=== PATIENT | female | born 1970 | race Caucasian/White ===

== ENCOUNTER 2016-11-15 17:52 | Emergency (ER) | payer BC, OTHER ==
[~2016-11-15] VITALS: Ht 160 cm; Wt 97.0 kg
[2016-11-15 18:04] VITALS: TEMP 37.1; Ht 160 cm; Wt 97.0 kg
[2016-11-15] MEDS ORDERED: SODIUM CHLORIDE 0.9% 1000ML 1,000 ML IV STA (18:50)
--- NOTE | 2016-11-15 18:55 | EMERGENCY ROOM VISIT NOTE ---
History First contact with patient: 18:26 Chief Complaint: OTHER COMPLAINT Stated Complaint: HEADACHE,BLURRED VISION,SPASMS IN HEAD History of Present Illness The patient is a 46 year old female who presents to the Emergency Room with myriad complaints. The patient essentially has a positive review of systems. The patient states that she has had intermittent headaches and blurred vision. She states that she noticed a lump on the top of her head at least 2 months ago. She states that she has had pain in the top of her head that radiates to her ears and her jaws intermittently. She states she saw a dentist did not think it was her teeth. The patient saw a neurologist back in June and had a normal MRI of the brain. She has also followed with her family doctor and had a CBC had her thyroid checked. The patient reports headache. She reports numbness and tingling diffusely. She reports pain in her chest, trouble breathing and indigestion. She reports nausea. She reports pain in her entire spine from her neck to her low back. She reports constipation, blood in her stool. She reports diffuse abdominal discomfort. She reports vaginal discharge. She reports urinary symptoms. The patient states she thought she had fibromyalgia and took Cymbalta but it did not help. Review of Systems A 10 system review of systems was completed with positives and pertinent negatives listed in the HPI. Past Medical/Surgical History Medical Problems: (1) Hypothyroid Social History Smoking Status: Never Smoker Marital Status: Housing Status: lives with family Current/Historical Medications Scheduled Control Pills ( Control Pills), 1 TAB PO DAILY Levothyroxine Sodium (Synthroid), 88 MCG PO QAM Allergies Coded Allergies: No Known Allergies (Unverified , 11/15/16) Physical Exam Vital Signs Date Time Temp Pulse Resp B/P Pulse Ox O2 Delivery O2 Flow Rate FiO2 11/15/16 20:37 78 18 134/89 98 Room Air 11/15/16 19:04 88 11/15/16 18:04 37.1 93 18 166/86 100 Room Air Physical Exam VITALS: Vitals are noted on the nurse's note and reviewed by myself. Vital signs stable. GENERAL: This is a 46-year-old female, in no acute distress, nondiaphoretic, well-developed well-nourished. SKIN: The skin was without rashes, erythema, edema, or bruising. There is a tiny, possible prominent follicle noted to the top of the head in the area that the patient reports a lump. There is no fluctuance, erythema, drainage. There is no tenting of the skin. Capillary reflex less than 2 seconds. HEAD: Normocephalic atraumatic. EARS: External auditory canals clear, tympanic membranes pearly arenas without erythema or effusion bilaterally. EYES: Pupils equal round and reactive to light and accommodation. Conjunctivae without injection, sclerae without icterus. Extraocular movements intact. NOSE: Patent, turbinates without inflammation or discharge. No sinus tenderness. MOUTH: Mucous membranes moist. Tonsils are not enlarged. Pharynx without erythema or exudate. Uvula midline. Airway patent. Tongue does not deviate. NECK: Supple without nuchal rigidity. No lymphadenopathy. No thyromegaly. Cervical spine is nontender. No JVD. HEART: Regular rate and rhythm without murmurs gallops or rubs. LUNGS: Clear to auscultation bilaterally without wheezes, rales or rhonchi. No retractions or accessory muscle use. ABDOMEN: Positive bowel sounds x 4. Soft, diffuse abdominal tenderness, without masses or organomegaly. Gunn sign negative. RECTAL: There is a nonbleeding, nonthrombosed, nontender external hemorrhoids present. Stool is brown and guaiac negative. MUSCULOSKELETAL: No muscle atrophy, erythema, or edema noted. Normal gait. Strength 5/5 throughout. NEURO: Patient was alert and oriented to person place and time. No focal neurological deficits. Medical Decision & Procedures ER Provider Diagnostic Interpretation: CHEST CTA for PULMONARY ARTERIES CT DOSE: 571.27 mGy.cm HISTORY: Chest pain dyspnea TECHNIQUE: Multiaxial CT images of the chest were performed following the intravenous administration of contrast to evaluate the pulmonary arteries. Maximal intensity projection images were also obtained. COMPARISON STUDY: None. FINDINGS: There is a normal caliber thoracic aorta with no evidence for dissection. There is no evidence for pulmonary embolus. No pleural effusions. No pneumothorax. The liver and spleen are unremarkable. No mediastinal or hilar lymphadenopathy. The central airways are patent. The lungs are clear. IMPRESSION: No evidence for pulmonary embolus. CHEST ONE VIEW PORTABLE CLINICAL HISTORY: chest pain dyspnea COMPARISON STUDY: No previous studies for comparison. FINDINGS: The bones soft tissues and hemidiaphragms are normal. The cardiomediastinal silhouette is normal. The lungs are clear. The pulmonary vasculature is normal. IMPRESSION: Negative chest. [~ rep ct add3]] HEAD CT NONCONTRAST CT DOSE: 537.48 mGy.cm HISTORY: headache TECHNIQUE: Multiaxial CT images of the head were performed without the use of intravenous contrast. Comparison: None. Findings: The paranasal sinuses and mastoid air cells are clear. The calvarium and skull base are intact. The ventricles and sulci are within normal limits. There is no mass, hematoma, midline shift, or acute infarct. Impression: No acute intracranial abnormality. Laboratory Results 11/15/16 19:01 Red Blood Count 4.70, Mean Corpuscular Volume 87.2, Mean Corpuscular Hemoglobin 29.4, Mean Corpuscular Hemoglobin Concent 33.7, Mean Platelet Volume 8.9, Neutrophils (%) (Auto) 50.1, Lymphocytes (%) (Auto) 38.3, Monocytes (%) (Auto) 10.6, Eosinophils (%) (Auto) 0.5, Basophils (%) (Auto) 0.3, Neutrophils # (Auto ) 5.20, Lymphocytes # (Auto) 3.98, Monocytes # (Auto) 1.10, Eosinophils # (Auto ) 0.05, Basophils # (Auto) 0.03 11/15/16 19:01 Test 11/15/16 19:00 11/15/16 19:01 Urine Color YELLOW Urine Appearance CLEAR (CLEAR) Urine pH 8.5 (4.5-7.5) Urine Specific [place] 1.009 (1.000-1.030) Urine Protein NEG (NEG) Urine Glucose (UA) NEG (NEG) Urine Ketones NEG (NEG) Urine Occult Blood 1+ (NEG) Urine Nitrite NEG (NEG) Urine Bilirubin NEG (NEG) Urine Urobilinogen NEG (NEG) Urine Leukocyte Esterase NEG (NEG) Urine WBC (Auto) 1-5 /hpf (0-5) Urine RBC (Auto) 5-10 /hpf (0-4) Urine Hyaline Casts (Auto) 1-5 /lpf (0-5) Urine Epithelial Cells (Auto) >30 /lpf (0-5) Urine Bacteria (Auto) 1+ (NEG) Urine Test NEG (NEG) White Blood Count 10.38 K/uL (4.8-10.8) Red Blood Count 4.70 M/uL (4.2-5.4) Hemoglobin 13.8 g/dL (12.0-16.0) Hematocrit 41.0 % (37-47) Mean Corpuscular Volume 87.2 fL (80-100) Mean Corpuscular Hemoglobin 29.4 pg (25-34) Mean Corpuscular Hemoglobin Concent 33.7 g/dl (32-36) Platelet Count 344 K/uL (130-400) Mean Platelet Volume 8.9 fL (7.4-10.4) Neutrophils (%) (Auto) 50.1 % Lymphocytes (%) (Auto) 38.3 % Monocytes (%) (Auto) 10.6 % Eosinophils (%) (Auto) 0.5 % Basophils (%) (Auto) 0.3 % Neutrophils # (Auto) 5.20 K/uL (1.4-6.5) Lymphocytes # (Auto) 3.98 K/uL (1.2-3.4) Monocytes # (Auto) 1.10 K/uL (0.11-0.59) Eosinophils # (Auto) 0.05 K/uL (0-0.5) Basophils # (Auto) 0.03 K/uL (0-0.2) RDW Standard Deviation 39.3 fL (36.4-46.3) RDW Coefficient of Variation 12.2 % (11.5-14.5) Immature Granulocyte % (Auto) 0.2 % Immature Granulocyte # (Auto) 0.02 K/uL (0.00-0.02) Prothrombin Time 10.6 SECONDS (9.0-12.0) Prothromb Time International Ratio 1.0 (0.9-1.1) Activated Partial Thromboplast Time 25.0 SECONDS (21.0-31.0) Partial Thromboplastin Ratio 1.0 D-Dimer 520 ug/L FEU (0-500) Anion Gap 7.0 mmol/L (3-11) Est Creatinine Clear Calc Drug Dose 113.4 ml/min Estimated GFR () 120.7 Estimated GFR (Non- 104.2 BUN/Creatinine Ratio 13.9 (10-20) Calcium Level 9.0 mg/dl (8.5-10.1) Total Bilirubin 0.4 mg/dl (0.2-1) Aspartate Amino Transf (AST/SGOT) 19 U/L (15-37) Alanine Aminotransferase (ALT/SGPT) 32 U/L (12-78) Alkaline Phosphatase 89 U/L (45-117) Total Creatine Kinase 118 U/L (26-192) Creatine Kinase MB < 0.5 ng/ml (0.5-3.6) Creatine Kinase MB Ratio (0-3.0) Troponin I < 0.015 ng/ml (0-0.045) Total Protein 7.7 gm/dl (6.4-8.2) Albumin 4.0 gm/dl (3.4-5.0) Globulin 3.7 gm/dl (2.5-4.0) Albumin/Globulin Ratio 1.1 (0.9-2) Lipase 157 U/L (73-393) Thyroid Stimulating Hormone (TSH) 1.820 uIu/ml (0.300-4.500) Monoscreen NEG (NEG) Medications Administered Medications (Trade) Dose Ordered Sig/Nannette Route Start Time Stop Time Status Last Admin Dose Admin Sodium Chloride (Nss 1000ml) 1,000 ml @ 999 mls/hr Q1H1M STAT IV 11/15/16 18:50 11/15/16 19:50 DC 11/15/16 18:50 999 MLS/HR Procedure The patient was monitored on a traffic monitor specialist. They maintained a normal sinus rhythm without ectopy. ED Course The patient was seen and examined. Previous visits were reviewed. The patient does not have fever or leukocytosis. She does not have any significant electrolyte abnormality. Cardiac enzymes were not elevated. Lipase was within normal. TSH was within normal limits. INR was 1.0. D-dimer was elevated. Urinalysis reveals hematuria and contamination. Urine test was negative. Page was negative. The patient did not have any arrhythmia, EKG changes during her stay CT scan of the brain was unremarkable CT scan of the chest was negative for pulmonary embolus The patient presents to the emergency department with myriad complaints. The patient seems to be quite preoccupied that there is underlying health conditions and she is not well. The patient states her mother has stage IV cancer and her diagnosis may have something to do with the patient's preoccupation. The patient does not appear to have acute arrhythmia, ischemia, pulmonary embolus. The patient reports constipation and rectal bleeding. She does have an external hemorrhoid. Her stool was brown and guaiac-negative. Her abdomen was benign. She reports a lump on the top of her head as well as intermittent and ongoing headaches. The lump seems to be consistent with a hair follicle or possible pimple. The patient's worry seems to be out of proportion. She has seen neurology. She has had MRI of the brain. She has followed with her family doctor but still is concerned that there is an underlying disease process she does not know about. The patient is concerned that she has had ongoing indigestion and constipation. I suggested a possible follow-up with gastroenterology if the symptoms persist. The patient should return with any worsening symptoms. Otherwise, she should follow-up with her family doctor and gastroenterology for further evaluation and management. The case was discussed with Dr. Rodriguez who agrees with the assessment and treatment plan Medical Decision DIFFERENTIAL DIAGNOSIS: Hepatitis, cholecystitis, cholangitis, biliary colic, pancreatitis, pneumonia, subdiaphragmatic abscess, appendicitis, inguinal hernia , nephrolithiasis, inflammatory bowel disease, mesenteric adenitis, peptic ulcer disease, GERD, gastritis, pancreatitis, myocardial infarction, pericarditis, ruptured aortic aneurysm, appendicitis, gastroenteritis, bowel obstruction, splenic infarct, diverticulitis, mesenteric ischemia, metabolic, peritonitis, head or neck trauma, cerebrovascular disorders, intracranial lesions, infection,transient ischemic attack (TIA), CVA, seizure, syncope, intracranial mass, intracranial bleeding and vestibular disorders, among others Impression Primary Impression: Headache Additional Impressions: Precordial chest pain Dyspnea Constipation Departure Information Dispostion Home / Self-Care Condition GOOD Referrals Fritz Forrest M.D. (PCP) Alexandre Ortega MD Patient Instructions Chest Pain - [facility], Constipation, [facility] Additional Instructions Contact GI to schedule a follow up appointment for further evaluation and management Return with worsening symptoms Follow up with your family doctor for recheck and repeat urinalysis in a week or so Problem Qualifiers Primary Impression: Headache
[2016-11-15] MEDS ORDERED: SYN88 PO (19:06)
[2016-11-15] MEDS ORDERED: BCPILLS PO (19:07)
[2016-11-15 19:10] LABS: BASO % 0.3 %; BASO ABS # 0.03 K/uL (0-0.2); COMPLETE YES; EOS % 0.5 %; IG% 0.2 %; LYMPH % 38.3 %; LYMPH ABS # 3.98 K/uL (1.2-3.4); MEAN CELL VOLUME 87.2 fL (80-100); MEAN CORPUSCULAR HEMOGLOBIN 29.4 pg (25-34); MEAN CORPUSCULAR HGB CONC 33.7 g/dl (32-36); MEAN PLATELET VOLUME 8.9 fL (7.4-10.4); MONO % 10.6 %; NEUT % 50.1 %; PLATELET COUNT 344 K/uL (130-400); WHITE BLOOD COUNT 10.38 K/uL (4.8-10.8)
--- NOTE | 2016-11-15 19:12 | DIAGNOSTIC IMAGING REPORT ---
CHEST ONE VIEW PORTABLE CLINICAL HISTORY: chest pain dyspnea COMPARISON STUDY: No previous studies for comparison. FINDINGS: The bones soft tissues and hemidiaphragms are normal. The cardiomediastinal silhouette is normal. The lungs are clear. The pulmonary vasculature is normal. IMPRESSION: Negative chest. Electronically signed by: Javan Romero M.D. 11/15/2016 7:10 PM Dictated Date/Time: 11/15/2016 7:10 PM
--- NOTE | 2016-11-15 19:25 | DIAGNOSTIC IMAGING REPORT ---
HEAD CT NONCONTRAST CT DOSE: 537.48 mGy.cm HISTORY: headache TECHNIQUE: Multiaxial CT images of the head were performed without the use of intravenous contrast. Comparison: None. Findings: The paranasal sinuses and mastoid air cells are clear. The calvarium and skull base are intact. The ventricles and sulci are within normal limits. There is no mass, hematoma, midline shift, or acute infarct. Impression: No acute intracranial abnormality. Electronically signed by: Javan Romero M.D. 11/15/2016 7:24 PM Dictated Date/Time: 11/15/2016 7:23 PM
[2016-11-15 19:28] LABS: PROTHROMBIN TIME (PATIENT) 10.6 SECONDS (9.0-12.0)
[2016-11-15 19:29] LABS: BLOOD UREA NITROGEN 9 mg/dl (7-18); BUN/CREATININE RATIO 13.9 (10-20); CARBON DIOXIDE 27 mmol/L (21-32); CHLORIDE 106 mmol/L (98-107); CREATININE 0.68 mg/dl (0.60-1.20); GLUCOSE 86 mg/dl (70-99); POTASSIUM 3.7 mmol/L (3.5-5.1); SODIUM 140 mmol/L (136-145)
[2016-11-15 19:30] LABS: URINE APPEARANCE CLEAR (CLEAR); URINE BILIRUBIN NEG (NEG); URINE COLOR YELLOW; URINE EPITHELIAL CELL AUTO >30 /lpf (0-5); URINE NITRITE NEG (NEG); URINE PH 8.5 (4.5-7.5); URINE SPECIFIC GRAVITY 1.009 (1.000-1.030); UROBILINOGEN NEG (NEG); ZZUR CULT IF INDIC CLEAN CATCH YES
[2016-11-15 19:32] LABS: MANUAL MICROSCOPIC REQUIRED? NO; REVIEW REQ? NO
[2016-11-15 19:40] LABS: ALB/GLOB RATIO 1.1 (0.9-2); ALKALINE PHOSPHATASE 89 U/L (45-117); ALT/SGPT 32 U/L (12-78); AST/SGOT 19 U/L (15-37)
[2016-11-15] MEDS ORDERED: OPTIRAY 320 IV PRN (19:45)
--- NOTE | 2016-11-15 20:18 | DIAGNOSTIC IMAGING REPORT ---
CHEST CTA for PULMONARY ARTERIES CT DOSE: 571.27 mGy.cm HISTORY: Chest pain dyspnea TECHNIQUE: Multiaxial CT images of the chest were performed following the intravenous administration of contrast to evaluate the pulmonary arteries. Maximal intensity projection images were also obtained. COMPARISON STUDY: None. FINDINGS: There is a normal caliber thoracic aorta with no evidence for dissection. There is no evidence for pulmonary embolus. No pleural effusions. No pneumothorax. The liver and spleen are unremarkable. No mediastinal or hilar lymphadenopathy. The central airways are patent. The lungs are clear. IMPRESSION: No evidence for pulmonary embolus. Electronically signed by: Javan Romero M.D. 11/15/2016 8:17 PM Dictated Date/Time: 11/15/2016 8:17 PM
[2016-11-15 20:37] VITALS: BP 134/89; PULSE 78; O2SAT 98
== END 2016-11-15 20:49 | disposition home or self-care (01) ==
LOC: C.EDB 17:53 → C.EDA 20:49
DX: R51 Headache (principal); R07.2 Precordial pain; R06.00 Dyspnea, unspecified; K59.00 Constipation, unspecified; E03.9 Hypothyroidism, unspecified